=== PATIENT | male | born 2000 ===

== ENCOUNTER 2018-02-02 11:34 | Emergency (ER) | payer SELFPAY ==
[2018-02-02 11:38] VITALS: BP 118/74
--- NOTE | 2018-02-02 12:01 | EDPHY ---
H & P Smoking Status: Never smoked Time Seen by Provider: 02/02/18 11:51 HPI/ROS: CHIEF COMPLAINT: Left medial ankle pain post snowboarding HISTORY OF PRESENT ILLNESS: 17-year-old male arrives via private vehicle complaining of acute left medial ankle pain of 2 snowboarding yesterday [place]. He is complaining of pain to the medial aspect. Pain is reproducible with palpation and movement. Intact skin. No proximal or distal pain or injury. No calcaneus pain. No fall from height. PHYSICAL EXAM (Prior to examination, patient consented to physical exam, hands were washed and my usual and customary physical exam procedures followed) 1) GENERAL: Well-developed, well-nourished, alert and oriented. Appears to be in no acute distress. 2) HEAD: Normocephalic 3) HEENT: Pupils equal, round, reactive to light bilaterally. 4) LUNGS: Breathing comfortably. 5) MUSCULOSKELETAL: Tender to palpation medial malleolus with associated soft tissue swelling and ecchymosis. proximal tibia and fibula nontender .5th MT nontender negative Carrillo test, compartments soft. Calcaneus is nontender. 6) SKIN: Intact 7) VASCULAR: DP,PT pulses and cap refill present and brisk DIFFERENTIAL DIAGNOSIS: in no particular order including but not limited to fracture, sprain, compartment syndrome Procedure: Crutches indications for crutch use discussed with patient. Patient fitted for crutches by ER staff. Observed ambulating with crutches. I think the patient has the capacity to safely use crutches. Usual and customary crutch walking precautions provided Procedure: Splint A [place] boot splint was applied by ER mold repair technician. After application of the splint I returned and re-examined the patient. The splint was adequately immobilizing the joint and distal to the splint the patient's circulation and sensation were intact. Patient shows no signs of compartment syndrome. Was given orthopedic precautions. (Madisyn Redd) Constitutional: Initial Vital Signs Temperature (C) 36.7 C 02/02/18 11:36 Heart Rate 52 L 02/02/18 11:36 Respiratory Rate 18 04/16/18 11:36 Blood Pressure 118/74 04/16/18 11:36 O2 Sat (%) 98 02/02/18 11:36 O2 Delivery Mode Room Air Allergies/Adverse Reactions: No Known Allergies Allergy (Unverified 02/02/18 11:36) Home Medications: Medication Instructions Recorded Ibuprofen [Motrin (*)] 600 mg PO Q6 #15 tab 02/02/18 MDM/Departure - MDM Imaging: I viewed and interpreted images myself - MDM Imaging Results: (Madisyn Redd) ED Course/Re-evaluation: Care of patient under supervision of secondary supervising physician Dr Sainz . (Madisyn Redd) I did not see this patient while he was in the emergency department. However his care was discussed with the PA while the patient was in the department. I agree with treatment plan and management (Michael Sainz) - Depart Disposition: Home, Routine, Self-Care Clinical Impression: Fracture of medial malleolus, left, closed Condition: Good Instructions: Ankle Fracture (ED) Additional Instructions: Return to the ER immediately if you experience discoloration, have worsening pain, numbness, tingling, or any other symptoms that concern you. If you received x-rays in the emergency department today, be advised, that ligamentous , tendon, muscular, and other non-bony injury cannot be fully ruled out. Try to keep your affected extremity elevated above the level of your chest, and keep cold packs on the affected area, for the next 48 hours. Prescriptions: Ibuprofen [Motrin (*)] 600 mg PO Q6 #15 tab Referrals: Nabil Campos MD [Medical Doctor] - 2-3 days, call for appt.
== END 2018-02-02 12:37 | disposition home or self-care (01) ==
DX: S82.52XA Displaced fracture of medial malleolus of left tibia, initial encounter for closed fracture (principal); V00.311A Fall from snowboard, initial encounter; Y99.8 Other external cause status; Y93.23 Activity, snow (alpine) (downhill) skiing, snowboarding, sledding, tobogganing and snow tubing
CPT/HCPCS: L4386